=== PATIENT | female | born 1945 ===

== ENCOUNTER 2019-01-17 07:52 | Outpatient (CLI) | payer OTHER ==
[~2019-01-17 07:52] MED LIST: TRAMADOL HCL50 MG PO
== END 2019-01-17 08:05 | disposition home or self-care (01) ==
LOC: TOM 07:52
DX: R10.12 Left upper quadrant pain (principal); R10.32 Left lower quadrant pain; Z12.11 Encounter for screening for malignant neoplasm of colon
CPT/HCPCS: 74177; Q9965